=== PATIENT | female | born 1980 | race Two or more races ===

== ENCOUNTER 2018-12-02 22:38 | Inpatient (IN) | payer SELFPAY ==
[~2018-12-02] VITALS: Ht 162.6 cm; Wt 81.6 kg
[~2018-12-02 22:38] MED LIST: CEPH-264 PO; DOCU-109 PO; IBUP-1060 PO; METH250T3 PO; OXYC1TAB15 PO; PNV1TABL25 PO
[2018-12-02 23:11] LABS: BASO # 0.1 x10^3/uL (0.0-0.2); BASO % 1 % (0-3); EOS # 0.1 x10^3/uL (0.0-0.7); EOS % 1 % (0-3); HEMATOCRIT 38.8 % (36.0-47.0); HEMOGLOBIN 13.4 g/dL (12.0-15.5); LYMPH # 1.9 x10^3/uL (1.0-4.8); LYMPH % 17 % (24-48); MEAN CORPUSCULAR HEMOGLOBIN 30 pg (25-35); MEAN CORPUSCULAR HGB CONC 35 g/dL (31-37); MEAN CORPUSCULAR VOLUME 86 fL (79-100); MONO # 0.6 x10^3/uL (0.0-1.1); MONO % 6 % (0-9); NEUT # 8.1 x10^3uL (1.8-7.7); NEUT % 76 % (31-73); PLATELET COUNT 362 x10^3/uL (140-400); RED BLOOD COUNT 4.54 x10^6/uL (3.50-5.40); RED CELL DISTRIBUTION WIDTH 13.9 % (11.5-14.5); WHITE BLOOD COUNT 10.7 x10^3/uL (4.0-11.0)
[2018-12-02] MEDS ORDERED: LIDO:MAALOX 1:1 20 ML SINGLE DOSE. SWSW ONE (23:15)
[2018-12-02] MEDS ORDERED: IV NORMAL SALINE 1000ML BAG 1,000 ML IV ONE (23:15)
[2018-12-02] MEDS ORDERED: FAMOTIDINE 20 MG/2 ML VIAL IVP ONE (23:15)
[2018-12-02] MEDS ORDERED: ASPIRIN 325 MG TABLET PO ONE (23:15)
[2018-12-02] MEDS ORDERED: ALPRAZolam 0.5 MG TABLET PO ONE (23:15)
[2018-12-02 23:23] LABS: CALCIUM 8.7 mg/dL (8.5-10.1); CREATININE 0.8 mg/dL (0.6-1.0); GFR 81.2; POTASSIUM 3.7 mmol/L (3.5-5.1)
[2018-12-02 23:30] LABS: ALBUMIN 3.6 g/dL (3.4-5.0); ALBUMIN/GLOBULIN RATIO 0.7 (1.0-1.7); MAGNESIUM 2.1 mg/dL (1.8-2.4); TOTAL BILIRUBIN 0.3 mg/dL (0.2-1.0); TOTAL PROTEIN 8.5 g/dL (6.4-8.2)
[2018-12-02 23:41] LABS: CREATINE KINASE 108 U/L (26-192)
[2018-12-02 23:45] LABS: PROTHROMBIN TIME PATIENT 13.2 SEC (11.7-14.0)
[2018-12-02 23:49] LABS: D-DIMER 1.06 ug/mlFEU (0.00-0.50)
[2018-12-03] VITALS (13 sets, daily range): BP systolic 118–160; BP diastolic 68–95
[2018-12-03] MEDS ORDERED: CONTRAST GIVEN. MC PRN
[2018-12-03] MEDS ORDERED: IOHEXOL 350 MG/ML 100 ML VIAL. IV ONE
[2018-12-03] MEDS ORDERED: LABETALOL 20 MG/4 ML DISP.SYRIN. IVP ONE (00:15)
[2018-12-03] MEDS ORDERED: cloNIDine HCL 0.1 MG TABLET PO ONE (00:15)
--- NOTE | 2018-12-03 00:34 | PHYS DOC ---
Past Medical History Past Medical History: Anxiety, GERD, Hypertension Additional Past Medical Histor: "prediabetic" (SANNA WARD APRN) Past Surgical History: (SANNA WARD APRN) Alcohol Use: None Drug Use: None (SANNA WARD APRN) Adult General Chief Complaint Chief Complaint: CHEST PAIN-NON CARDIAC NATURE HPI HPI Patient is a 38 year old female with a history of acid reflex, hypertension, prediabetes, anxiety, who presents to the ED today complaining of 10 out of 10 epigastric pain that began at 1600 today. Patient describes the pain as sharp and constant. Patient states she's had similar pain before but does not remember what alleviated the pain. She is crying right now. She states she usually has anxiety but is not on any medication. Patient denies anything specifically exacerbating or alleviating her pain right now. She appears very anxious. Denies being abused Patient is Syriac-speaking and the doctors interpreting (SANNA WARD APRN) Review of Systems Review of Systems Constitutional: Denies fever or chills [] Eyes: Denies change in visual acuity, redness, or eye pain [] HENT: Denies nasal congestion or sore throat [] Respiratory: Denies cough or shortness of breath [] Cardiovascular: Reports epigastric pain GI: Denies abdominal pain, nausea, vomiting, bloody stools or diarrhea [] : Denies dysuria or hematuria [] Musculoskeletal: Denies back pain or joint pain [] Integument: Denies rash or skin lesions [] Neurologic: Denies headache, focal weakness or sensory changes [] Psych: Reports anxiety All other systems were reviewed and found to be within normal limits, except as documented in this note. (SANNA WARD APRN) Current Medications Current Medications Current Medications Medications (Trade) Dose Ordered Sig/Margarito Start Time Stop Time Status Last Admin Dose Admin Alprazolam (Xanax) 0.5 mg 1X ONCE 12/02/18 23:15 12/02/18 23:17 DC 12/02/18 23:43 0.5 MG Aspirin (Selam Aspirin) 325 mg 1X ONCE 12/02/18 23:15 12/02/18 23:17 DC 12/02/18 23:44 325 MG Clonidine HCl (Catapres) 0.1 mg 1X ONCE 12/03/18 00:15 12/03/18 00:16 DC 12/03/18 00:38 0.1 MG Famotidine (Pepcid Vial) 20 mg 1X ONCE 12/02/18 23:15 12/02/18 23:17 DC 12/02/18 23:44 20 MG Info (CONTRAST GIVEN -- Rx MONITORING) 1 each PRN DAILY PRN 12/03/18 00:00 12/05/18 00:00 Iohexol (Omnipaque 350 Mg/ml) 100 ml 1X ONCE 12/03/18 00:00 12/03/18 00:01 DC 12/03/18 00:30 100 ML Labetalol HCl (Normodyne Iv Push) 10 mg 1X ONCE 12/03/18 00:15 12/03/18 00:16 DC Morphine Sulfate (Morphine Sulfate) 4 mg PRN Q2HR PRN 12/03/18 01:30 12/04/18 01:29 Multi-Ingredient Mouthwash/Gargle (Gi Cocktail) 20 ml 1X ONCE 12/02/18 23:15 12/02/18 23:17 DC 12/02/18 23:43 20 ML Ondansetron HCl (Zofran) 4 mg PRN Q8HRS PRN 12/03/18 01:30 12/04/18 01:29 Piperacillin Sod/ Tazobactam Sod (Zosyn Per Pharmacy) 1 each PRN DAILY PRN 12/03/18 01:30 Piperacillin Sod/ Tazobactam Sod 3.375 gm/Sodium Chloride 50 ml @ 100 mls/hr Q6HRS 12/03/18 01:30 Sodium Chloride 1,000 ml @ 100 mls/hr Q10H 12/03/18 01:30 12/04/18 01:29 (CAMACHO OSUNA MD) Allergies Allergies Allergies Coded Allergies Type Severity Reaction Last Updated Verified No Known Drug Allergies 12/02/18 No (CAMACHO OSUNA MD) Physical Exam Physical Exam Constitutional: Well developed, well nourished, no acute distress, non-toxic appearance. [] HENT: Normocephalic, atraumatic, bilateral external ears normal, oropharynx moist, no oral exudates, nose normal. [] Eyes: PERRLA, EOMI, conjunctiva normal, no discharge. [] Neck: Normal range of motion, no tenderness, supple, no stridor. [] Cardiovascular:Heart rate regular rhythm, no murmur [] Lungs & Thorax: Bilateral breath sounds clear to auscultation [] Abdomen: Bowel sounds normal, soft, tenderness on palpation of the epigastric region as well as bilateral upper abdomen with no obvious Wong sign, no masses, no pulsatile masses. [] Skin: Warm, dry, no erythema, no rash. [] Back: No tenderness, no CVA tenderness. [] Extremities: No tenderness, no cyanosis, no clubbing, ROM intact, no edema. [] Neurologic: Alert and oriented X 3, normal motor function, normal sensory function, no focal deficits noted. [] Psychologic: Patient appears anxious, she is crying (SANNA WARD APRN) Current Patient Data Vital Signs Vital Signs Date Time Temp Pulse Resp B/P (MAP) Pulse Ox O2 Delivery O2 Flow Rate FiO2 12/03/18 00:38 76 170/96 12/02/18 23:30 18 98 Room Air 12/02/18 23:11 98.6 98.6 (CAMACHO OSUNA MD) Lab Values Laboratory Tests Test 12/02/18 23:05 12/03/18 00:40 White Blood Count 10.7 x10^3/uL (4.0-11.0) Red Blood Count 4.54 x10^6/uL (3.50-5.40) Hemoglobin 13.4 g/dL (12.0-15.5) Hematocrit 38.8 % (36.0-47.0) Mean Corpuscular Volume 86 fL (79-100) Mean Corpuscular Hemoglobin 30 pg (25-35) Mean Corpuscular Hemoglobin Concent 35 g/dL (31-37) Red Cell Distribution Width 13.9 % (11.5-14.5) Platelet Count 362 x10^3/uL (140-400) Neutrophils (%) (Auto) 76 % (31-73) H Lymphocytes (%) (Auto) 17 % (24-48) L Monocytes (%) (Auto) 6 % (0-9) Eosinophils (%) (Auto) 1 % (0-3) Basophils (%) (Auto) 1 % (0-3) Neutrophils # (Auto) 8.1 x10^3uL (1.8-7.7) H Lymphocytes # (Auto) 1.9 x10^3/uL (1.0-4.8) Monocytes # (Auto) 0.6 x10^3/uL (0.0-1.1) Eosinophils # (Auto) 0.1 x10^3/uL (0.0-0.7) Basophils # (Auto) 0.1 x10^3/uL (0.0-0.2) Prothrombin Time 13.2 SEC (11.7-14.0) Prothrombin Time INR 1.0 (0.8-1.1) D-Dimer (Halima) 1.06 ug/mlFEU (0.00-0.50) H Sodium Level 133 mmol/L (136-145) L Potassium Level 3.7 mmol/L (3.5-5.1) Chloride Level 97 mmol/L (98-107) L Carbon Dioxide Level 26 mmol/L (21-32) Anion Gap 10 (6-14) Blood Urea Nitrogen 10 mg/dL (7-20) Creatinine 0.8 mg/dL (0.6-1.0) Estimated GFR (Cockcroft-Gault) 81.2 BUN/Creatinine Ratio 13 (6-20) Glucose Level 144 mg/dL (70-99) H Calcium Level 8.7 mg/dL (8.5-10.1) Magnesium Level 2.1 mg/dL (1.8-2.4) Total Bilirubin 0.3 mg/dL (0.2-1.0) Aspartate Amino Transferase (AST) 17 U/L (15-37) Alanine Aminotransferase (ALT) 29 U/L (14-59) Alkaline Phosphatase 98 U/L (46-116) Creatine Kinase 108 U/L (26-192) Creatine Kinase MB (Mass) < 0.5 ng/mL (0.0-3.6) Creatine Kinase MB Relative Index % (0-4) Troponin I Quantitative < 0.017 ng/mL (0.000-0.055) QJ-Mne-S-Type Natriuretic Peptide 34 pg/mL (0-124) Total Protein 8.5 g/dL (6.4-8.2) H Albumin 3.6 g/dL (3.4-5.0) Albumin/Globulin Ratio 0.7 (1.0-1.7) L Lipase 123 U/L (73-393) Thyroid Stimulating Hormone (TSH) 0.847 uIU/mL (0.358-3.74) Urine Collection Type Unknown Urine Color [place] Urine Clarity Cloudy Urine pH 7.5 Urine Specific [place] >=1.030 Urine Protein Negative mg/dL (NEG-TRACE) Urine Glucose (UA) Negative mg/dL (NEG) Urine Ketones (Stick) Negative mg/dL (NEG) Urine Blood Large (NEG) Urine Nitrite Negative (NEG) Urine Bilirubin Negative (NEG) Urine Urobilinogen Dipstick 0.2 mg/dL (0.2 mg/dL) Urine Leukocyte Esterase Moderate (NEG) Urine RBC Tntc /HPF (0-2) Urine WBC 11-20 /HPF (0-4) Urine Squamous Epithelial Cells Few /LPF Urine Bacteria Few /HPF (0-FEW) Urine Mucus Slight /LPF Urine Opiates Screen Neg (NEG) Urine Methadone Screen Neg (NEG) Urine Barbiturates Neg (NEG) Urine Phencyclidine Screen Neg (NEG) Urine Amphetamine/Methamphetamine Neg (NEG) Urine Benzodiazepines Screen Neg (NEG) Urine Cocaine Screen Neg (NEG) Urine Cannabinoids Screen Neg (NEG) Urine Ethyl Alcohol Neg (NEG) Laboratory Tests 12/02/18 23:05 Laboratory Tests 12/02/18 23:05 (CAMACHO OSUNA MD) EKG EKG 22:50 interpreted by sinus rate them heart rate 87 no STEMI[] (SANNA WARD APRN) Radiology/Procedures Radiology/Procedures [] (SANNA WARD APRN) Course & Med Decision Making Course & Med Decision Making Pertinent Labs and Imaging studies reviewed. (See chart for details) This is a 38-year-old female patient presenting to the ED today from home complaining of epigastric pain. Patient arrives in the ED appearing anxious, crying. Vitals on arrival to the ED temperature 98.6 heart rate 76 O2 sats 99% on room air blood pressure 179/123 with a heart rate of 76. Has history of hypertension and prediabetes. CBC with a normal WBC left shift noted, CMP with glucose of 144 anion gap is normal patient states she has history of prediabetes Heart score [address] Osuna (SANNA WARD APRN) Course & Med Decision Making S/O FROM SANNA U/S SHOWS ENLARGED GB, GB STONE IN NECK NONMOBILE, GB SLUDGE, CBD 5.2 MM. WALL THICK, PCCF NOTED D/W SUGEY ADMIT TO [facility] (CAMACHO OSUNA MD) Dragon Disclaimer Dragon Disclaimer This electronic medical record was generated, in whole or in part, using a voice recognition dictation system. (SANNA WARD APRN) Departure Departure Impression: Primary Impression: Epigastric pain Additional Impressions: HTN (hypertension) Cholecystitis Disposition: ADMITTED INPATIENT Admitting Physician: Jamia Briceno (CAMACHO OSUNA MD) Condition: STABLE Referrals: UNKNOWN PCP NAME (PCP) Problem Qualifiers Additional Impressions: HTN (hypertension) Hypertension type: unspecified Qualified Codes: I10 - Essential (primary) hypertension SANNA WARD APRN Dec 03, 2018 00:34 CAMACHO OSUNA MD Dec 03, 2018 01:38
--- NOTE | 2018-12-03 00:54 | RAD ---
INDICATION: chest pain elevated d dimer, OMNI 350 90mL COMPARISON: None. TECHNIQUE: Axial CT images obtained through the chest. Intravenous contrast utilized. Angiogram 3D images processed per protocol. One or more of the following individualized dose reduction techniques were utilized for this examination: 1. Automated exposure control; 2. Adjustment of the mA and/or kV according to patient size; 3. Use of iterative reconstruction technique. FINDINGS: Minimal groundglass opacities right lower lung. No evidence of pneumothorax. Liver is low density. Probable gallstone. The gallbladder wall appears prominent in thickness through portion. Degenerative changes the right shoulder with some subchondral cyst formation as well as air at adjacent soft tissue. Degenerative changes of spine. No thoracic aortic aneurysm. Ascending thoracic aorta is largely obscured by motion. No embolus in main, right main or left main pulmonary artery. Large amount of motion obscures peripheral vessels. IMPRESSION: No embolus in the main pulmonary arteries but patient motion obscures the more peripheral vessels. Tiny groundglass opacity right lung. Could be from hypoventilatory changes or small airway inflammation. Liver is low density. Nonspecific but can be seen with fatty infiltration. There is either a small amount of pericholecystic edema or wall thickening of the gallbladder. It may be helpful to obtain a follow-up ultrasound to better evaluate Electronically signed by: Massimo Lao MD (12/03/2018 12:51 AM) [id number]
[2018-12-03 00:55] LABS: BILIRUBIN,URINE NEGATIVE (NEG); CLARITY,URINE CLOUDY; NITRITE,URINE NEGATIVE (NEG); PH,URINE 7.5; PROTEIN,URINE NEGATIVE (NEG-TRACE); UROBILINOGEN,URINE 0.2 mg/dL (0.2 mg/dL)
[2018-12-03 01:01] LABS: BARBITURATES NEG (NEG); BENZODIAZEPINES NEG (NEG); CANNABINOIDS NEG (NEG); COCAINE NEG (NEG); METHADONE NEG (NEG); OPIATES NEG (NEG); PHENCYCLIDINE NEG (NEG)
[2018-12-03 01:09] LABS: COLOR,URINE PINK
[2018-12-03 01:10] LABS: BACTERIA,URINE FEW /HPF (0-FEW); RBC,URINE TNTC /HPF (0-2); SQUAMOUS EPITHELIAL CELL,UR FEW /LPF
[2018-12-03 01:12] LABS: AMPHETAMINE/METHAMPHETAMINE NEG (NEG)
[2018-12-03] MEDS ORDERED: ONDANSETRON PF 4 MG/2 ML VIAL. IV PRN ×3 (01:30→09:00)
[2018-12-03] MEDS ORDERED: PIP/TAZO PER PHARMACY MC PRN (01:30)
--- NOTE | 2018-12-03 01:47 | RAD ---
INDICATION : RUQ PAIN CHEST PAIN COMPARISON: None TECHNIQUE: Multiple ultrasound images obtained through the abdomen in grayscale and color. FINDINGS: Liver: Echogenic Gallbladder: Gallstones are identified with pericholecystic edema. Distended at time of exam. Gallstone in the gallbladder neck. Wall measures up to 5 mm. IVC: Partially distended at level of liver. Common Bile Duct: 5 mm Pancreas: Largely obscured by bowel gas Right Kidney: Mildly prominent right renal pelvis. IMPRESSION: 1. Gallstones are identified with some distention of the gallbladder as well as a stone within the gallbladder neck region. There is also some prominence of the wall with pericholecystic edema. Would correlate with symptoms in the region to ensure that there is not a pathologic cause such as cholecystitis. The gallbladder wall thickening can also be reactive to adjacent hepatic disease or systemic process such as hypoproteinemia. Liver is echogenic. Nonspecific but can be seen with fatty infiltration Mild right-sided hydronephrosis Electronically signed by: Massimo Lao MD (12/03/2018 1:44 AM) [facility]
[2018-12-03] MEDS: PIPERACILLIN/TAZOBACTAM 3.375 GM in IV NORMAL SALINE 50ML 50 ML IV SCH ×5 (02:38→23:29)
[2018-12-03] MEDS: MORPHINE SULFATE 4 MG/ML VIAL. IV PRN ×3 (02:54→09:58)
[2018-12-03] MEDS: IV NORMAL SALINE 1000ML BAG 1,000 ML IV SCH ×3 (03:03→21:02)
--- NOTE | 2018-12-03 03:42 | NUR ---
The patient, DEEP DRUMMOND, 38 y/o, F admitted by MAGAN WHEELER MD, was given written information regarding hospital policies, unit procedures and contact persons. Pt. arrived to unit by wheelchair and zosyn running through IV. VSS. Pt. rates pain /. Pain medication given. Admission assessment and questions done at this time. Pt. refused to put belongings with security. She has about $30 worth of goins in [facility] [employer]), a debit card and home meds in purse. Call light within reach, bed low. Will continue to monitor.
[2018-12-03] MEDS ORDERED: OMEP20CA10 PO (04:02)
[2018-12-03] MEDS ORDERED: LISI10TA2 PO (04:02)
[2018-12-03] MEDS ORDERED: METF850T8 PO (04:02)
--- NOTE | 2018-12-03 08:11 | RAD ---
Examination: PORTABLE CHEST 1V History: CHEST PAIN SINCE 4 PM AROUND STERNM THAT HAS GOTTEN WORSE. HX OF HYPERTENTION Comparison/Correlation: None Findings: Portable upright frontal view of the chest was obtained. Heart size and pulmonary vasculature are normal. No infiltrate or pleural effusion. Bone island involves the left humeral head. No acute bony process. No pneumothorax. Impression: No active disease. Electronically signed by: Floyd Cisneros MD (12/03/2018 8:09 AM) [facility]
--- NOTE | 2018-12-03 08:18 | EKG ---
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
[2018-12-03] MEDS ORDERED: IV RINGERS,LACTATED 1000ML 1,000 ML IV SCH (08:49)
[2018-12-03] MEDS ORDERED: MORPHINE SULFATE 2 MG/ML VIAL. IV PRN (09:00)
[2018-12-03] MEDS: PANTOPRAZOLE 40 MG TABLET.DR. PO SCH (09:00)
[2018-12-03] MEDS ORDERED: HYDROmorphone 2 MG/ML VIAL IV PRN (09:00)
[2018-12-03] MEDS: LISINOPRIL 10 MG TABLET PO SCH (09:00)
[2018-12-03] MEDS ORDERED: LIDOCAINE 1% PF 2 ML VIAL. ID PRN (09:00)
[2018-12-03] MEDS ORDERED: PROCHLORPERAZINE 10 MG/2 ML VIAL. IV PRN (09:00)
[2018-12-03] MEDS ORDERED: fentaNYL PF VIAL 100 MCG/2 ML VIAL IV PRN ×2 (09:00)
[2018-12-03] MEDS ORDERED: IOHEXOL 300 MG/ML 100ML VIAL. ONE (09:17)
[2018-12-03] MEDS ORDERED: BUPIVAC MPF-EPI 0.5%-1:200000 30 ML VIAL. ONE (09:17)
[2018-12-03] MEDS ORDERED: SURGICEL HEMOSTAT 4X8 EACH. ONE (09:18)
--- NOTE | 2018-12-03 09:48 | PDOC2 ---
MARYCRUZ HERRERA COMPLIANCE NURSE 12/03/18 0948: CONSULT Date of Consult Date of Consult DATE: 12/03/18 TIME: 09:43 Reason for Consult Reason for Consult: cholecystitis Referring Physician Referring Physician: ER Identification/Chief Complaint Chief Complaint abdominal pain Source Source: Chart review, Patient History of Present Illness Reason for Visit: Reports acute onset of epigastric pain. She has had this pain before, however more severe now. Denies radiation to back. Pain does wrap to RUQ. No nausea or emesis. No aggravating or alleviating factors Past Medical History Cardiovascular: HTN GI: GERD Past Surgical History Past Surgical History: Family History Family History: Family History Unknown Social History No ALCOHOL: none Drugs: None Lives: Alone Current Problem List Problem List Problems Medical Problems: (1) Cholecystitis Status: Acute (2) Epigastric pain Status: Acute (3) HTN (hypertension) Status: Acute Current Medications Current Medications Current Medications Aspirin (Selam Aspirin) 325 mg 1X ONCE PO Last administered on 12/02/18at 23:44; Start 12/02/18 at 23:15; Stop 12/02/18 at 23:17; Status DC Alprazolam (Xanax) 0.5 mg 1X ONCE PO Last administered on 12/02/18at 23:43; Start 12/02/18 at 23:15; Stop 12/02/18 at 23:17; Status DC Multi-Ingredient Mouthwash/Gargle (Gi Cocktail) 20 ml 1X ONCE SWSW Last administered on 12/02/18at 23:43; Start 12/02/18 at 23:15; Stop 12/02/18 at 23:17; Status DC Famotidine (Pepcid Vial) 20 mg 1X ONCE IVP Last administered on 12/02/18at 23:44; Start 12/02/18 at 23:15; Stop 12/02/18 at 23:17; Status DC Sodium Chloride 1,000 ml @ 1,000 mls/hr 1X ONCE IV Last administered on 12/02/18at 23:44; Start 12/02/18 at 23:15; Stop 12/03/18 at 00:14; Status DC Iohexol (Omnipaque 350 Mg/ml) 100 ml 1X ONCE IV Last administered on 12/03/18at 00:30; Start 12/03/18 at 00:00; Stop 12/03/18 at 00:01; Status DC Info (CONTRAST GIVEN -- Rx MONITORING) 1 each PRN DAILY PRN MC SEE COMMENTS; Start 12/03/18 at 00:00; Stop 12/05/18 at 00:00 Labetalol HCl (Normodyne Iv Push) 10 mg 1X ONCE IVP ; Start 12/03/18 at 00:15; Stop 12/03/18 at 00:16; Status DC Clonidine HCl (Catapres) 0.1 mg 1X ONCE PO Last administered on 12/03/18at 00:38; Start 12/03/18 at 00:15; Stop 12/03/18 at 00:16; Status DC Ondansetron HCl (Zofran) 4 mg PRN Q8HRS PRN IV NAUSEA/VOMITING Last administered on 12/03/18at 05:45; Start 12/03/18 at 01:30; Stop 12/03/18 at 08:45; Status DC Morphine Sulfate (Morphine Sulfate) 4 mg PRN Q2HR PRN IV PAIN Last administered on 12/03/18at 05:45; Start 12/03/18 at 01:30; Stop 12/04/18 at 01:29 Sodium Chloride 1,000 ml @ 100 mls/hr Q10H IV Last administered on 12/03/18at 03:03; Start 12/03/18 at 01:30; Stop 12/04/18 at 01:29 Piperacillin Sod/ Tazobactam Sod (Zosyn Per Pharmacy) 1 each PRN DAILY PRN MC SEE COMMENTS; Start 12/03/18 at 01:30 Piperacillin Sod/ Tazobactam Sod 3.375 gm/Sodium Chloride 50 ml @ 100 mls/hr Q6HRS IV Last administered on 12/03/18at 05:45; Start 12/03/18 at 01:30 Ondansetron HCl (Zofran) 4 mg PRN Q6HRS PRN IV NAUSEA/VOMITING; Start 12/03/18 at 08:45 Lisinopril (Prinivil) 10 mg DAILY PO ; Start 12/03/18 at 09:00 Pantoprazole Sodium (Protonix) 40 mg DAILYAC PO ; Start 12/03/18 at 09:00 Ondansetron HCl (Zofran) 4 mg PRN Q6HRS PRN IV NAUSEA/VOMITING; Start 12/03/18 at 09:00; Stop 12/04/18 at 08:59 Fentanyl Citrate (Fentanyl 2ml Vial) 25 mcg PRN Q5MIN PRN IV MILD PAIN; Start 12/03/18 at 09:00; Stop 12/04/18 at 08:59 Fentanyl Citrate (Fentanyl 2ml Vial) 50 mcg PRN Q5MIN PRN IV MODERATE TO SEVERE PAIN; Start 12/03/18 at 09:00; Stop 12/04/18 at 08:59 Morphine Sulfate (Morphine Sulfate) 1 mg PRN Q10MIN PRN IV SEVERE PAIN; Start 12/03/18 at 09:00; Stop 12/04/18 at 08:59 Ringer's Solution 1,000 ml @ 30 mls/hr Q24H IV ; Start 12/03/18 at 08:49; Stop 12/03/18 at 20:48 Lidocaine HCl (Xylocaine-Mpf 1% 2ml Vial) 2 ml PRN 1X PRN ID PRIOR TO IV START; Start 12/03/18 at 09:00; Stop 12/04/18 at 08:59 Hydromorphone HCl (Dilaudid) 0.5 mg PRN Q10MIN PRN IV SEV PAIN, Second choice; Start 12/03/18 at 09:00; Stop 12/04/18 at 08:59 Prochlorperazine Edisylate (Compazine) 5 mg PACU PRN PRN IV NAUSEA, MRX1; Start 12/03/18 at 09:00; Stop 12/04/18 at 08:59 Active Scripts Active Reported Metformin Hcl 850 Mg Tablet 850 Mg PO 1X Omeprazole 20 Mg Capsule. 1 Cap PO DAILY Lisinopril 10 Mg Tablet 1 Tab PO DAILY Allergies Allergies: Coded Allergies: No Known Drug Allergies (Unverified , 12/02/18) ROS General: No: Chills, Other (fevers) PSYCHOLOGICAL ROS: No: Anxiety, Depression Eyes: No Blurry vision, No Double vision HEENT: No: Heacaches, Sore Throat Hematological and Lymphatic: No: Bleeding Problems, Blood Clots Respiratory: No: Cough, Shortness of breath Cardiovascular: No Chest Pain, No Palpitations Gastrointestinal: Yes Other (see hpi) Genitourinary: No Dysuria, No Retention Neurological: No Confusion, No Impaired Coord/balance Skin: No Pruritus, No Rash Physical Exam General: Alert, Oriented X3, Cooperative, No acute distress HEENT: PERRLA, Mucous membr. moist/pink Lungs: Clear to auscultation, Normal air movement Heart: Regular rate, Normal S1, Normal S2, No murmurs Abdomen: Soft, Other (ND, TTP to epigastric, RUQ) Extremities: No clubbing, No cyanosis Skin: No rashes, No breakdown Neuro: Normal gait, Normal speech Psych/Mental Status: Mental status NL, Mood NL MUSCULOSKELETAL: No joint tenderness, No deformity Vitals VITALS Vital Signs Date Time Temp Pulse Resp B/P (MAP) Pulse Ox O2 Delivery O2 Flow Rate FiO2 12/03/18 07:00 98.1 76 18 135/82 (99) 98 Room Air 98.1 Labs Labs Laboratory Tests Test 12/02/18 23:05 12/03/18 00:40 12/03/18 03:48 White Blood Count 10.7 x10^3/uL (4.0-11.0) Red Blood Count 4.54 x10^6/uL (3.50-5.40) Hemoglobin 13.4 g/dL (12.0-15.5) Hematocrit 38.8 % (36.0-47.0) Mean Corpuscular Volume 86 fL (79-100) Mean Corpuscular Hemoglobin 30 pg (25-35) Mean Corpuscular Hemoglobin Concent 35 g/dL (31-37) Red Cell Distribution Width 13.9 % (11.5-14.5) Platelet Count 362 x10^3/uL (140-400) Neutrophils (%) (Auto) 76 % (31-73) Lymphocytes (%) (Auto) 17 % (24-48) Monocytes (%) (Auto) 6 % (0-9) Eosinophils (%) (Auto) 1 % (0-3) Basophils (%) (Auto) 1 % (0-3) Neutrophils # (Auto) 8.1 x10^3uL (1.8-7.7) Lymphocytes # (Auto) 1.9 x10^3/uL (1.0-4.8) Monocytes # (Auto) 0.6 x10^3/uL (0.0-1.1) Eosinophils # (Auto) 0.1 x10^3/uL (0.0-0.7) Basophils # (Auto) 0.1 x10^3/uL (0.0-0.2) Prothrombin Time 13.2 SEC (11.7-14.0) Prothromb Time International Ratio 1.0 (0.8-1.1) D-Dimer (Halima) 1.06 ug/mlFEU (0.00-0.50) Sodium Level 133 mmol/L (136-145) Potassium Level 3.7 mmol/L (3.5-5.1) Chloride Level 97 mmol/L (98-107) Carbon Dioxide Level 26 mmol/L (21-32) Anion Gap 10 (6-14) Blood Urea Nitrogen 10 mg/dL (7-20) Creatinine 0.8 mg/dL (0.6-1.0) Estimated GFR (Cockcroft-Gault) 81.2 BUN/Creatinine Ratio 13 (6-20) Glucose Level 144 mg/dL (70-99) Calcium Level 8.7 mg/dL (8.5-10.1) Magnesium Level 2.1 mg/dL (1.8-2.4) Total Bilirubin 0.3 mg/dL (0.2-1.0) Aspartate Amino Transf (AST/SGOT) 17 U/L (15-37) Alanine Aminotransferase (ALT/SGPT) 29 U/L (14-59) Alkaline Phosphatase 98 U/L (46-116) Creatine Kinase 108 U/L (26-192) Creatine Kinase MB (Mass) < 0.5 ng/mL (0.0-3.6) Creatine Kinase MB Relative Index % (0-4) Troponin I Quantitative < 0.017 ng/mL (0.000-0.055) AE-Tcf-V-Type Natriuretic Peptide 34 pg/mL (0-124) Total Protein 8.5 g/dL (6.4-8.2) Albumin 3.6 g/dL (3.4-5.0) Albumin/Globulin Ratio 0.7 (1.0-1.7) Lipase 123 U/L (73-393) Thyroid Stimulating Hormone (TSH) 0.847 uIU/mL (0.358-3.74) Urine Collection Type Unknown Urine Color [place] Urine Clarity Cloudy Urine pH 7.5 Urine Specific [place] >=1.030 Urine Protein Negative mg/dL (NEG-TRACE) Urine Glucose (UA) Negative mg/dL (NEG) Urine Ketones (Stick) Negative mg/dL (NEG) Urine Blood Large (NEG) Urine Nitrite Negative (NEG) Urine Bilirubin Negative (NEG) Urine Urobilinogen Dipstick 0.2 mg/dL (0.2 mg/dL) Urine Leukocyte Esterase Moderate (NEG) Urine RBC Tntc /HPF (0-2) Urine WBC 11-20 /HPF (0-4) Urine Squamous Epithelial Cells Few /LPF Urine Bacteria Few /HPF (0-FEW) Urine Mucus Slight /LPF Urine Opiates Screen Neg (NEG) Urine Methadone Screen Neg (NEG) Urine Barbiturates Neg (NEG) Urine Phencyclidine Screen Neg (NEG) Urine Amphetamine/Methamphetamine Neg (NEG) Urine Benzodiazepines Screen Neg (NEG) Urine Cocaine Screen Neg (NEG) Urine Cannabinoids Screen Neg (NEG) Urine Ethyl Alcohol Neg (NEG) Glucose (Fingerstick) 124 mg/dL (70-99) Laboratory Tests Test 12/02/18 23:05 12/03/18 00:40 12/03/18 03:48 White Blood Count 10.7 x10^3/uL (4.0-11.0) Red Blood Count 4.54 x10^6/uL (3.50-5.40) Hemoglobin 13.4 g/dL (12.0-15.5) Hematocrit 38.8 % (36.0-47.0) Mean Corpuscular Volume 86 fL (79-100) Mean Corpuscular Hemoglobin 30 pg (25-35) Mean Corpuscular Hemoglobin Concent 35 g/dL (31-37) Red Cell Distribution Width 13.9 % (11.5-14.5) Platelet Count 362 x10^3/uL (140-400) Neutrophils (%) (Auto) 76 % (31-73) Lymphocytes (%) (Auto) 17 % (24-48) Monocytes (%) (Auto) 6 % (0-9) Eosinophils (%) (Auto) 1 % (0-3) Basophils (%) (Auto) 1 % (0-3) Neutrophils # (Auto) 8.1 x10^3uL (1.8-7.7) Lymphocytes # (Auto) 1.9 x10^3/uL (1.0-4.8) Monocytes # (Auto) 0.6 x10^3/uL (0.0-1.1) Eosinophils # (Auto) 0.1 x10^3/uL (0.0-0.7) Basophils # (Auto) 0.1 x10^3/uL (0.0-0.2) Prothrombin Time 13.2 SEC (11.7-14.0) Prothromb Time International Ratio 1.0 (0.8-1.1) D-Dimer (Halima) 1.06 ug/mlFEU (0.00-0.50) Sodium Level 133 mmol/L (136-145) Potassium Level 3.7 mmol/L (3.5-5.1) Chloride Level 97 mmol/L (98-107) Carbon Dioxide Level 26 mmol/L (21-32) Anion Gap 10 (6-14) Blood Urea Nitrogen 10 mg/dL (7-20) Creatinine 0.8 mg/dL (0.6-1.0) Estimated GFR (Cockcroft-Gault) 81.2 BUN/Creatinine Ratio 13 (6-20) Glucose Level 144 mg/dL (70-99) Calcium Level 8.7 mg/dL (8.5-10.1) Magnesium Level 2.1 mg/dL (1.8-2.4) Total Bilirubin 0.3 mg/dL (0.2-1.0) Aspartate Amino Transf (AST/SGOT) 17 U/L (15-37) Alanine Aminotransferase (ALT/SGPT) 29 U/L (14-59) Alkaline Phosphatase 98 U/L (46-116) Creatine Kinase 108 U/L (26-192) Creatine Kinase MB (Mass) < 0.5 ng/mL (0.0-3.6) Creatine Kinase MB Relative Index % (0-4) Troponin I Quantitative < 0.017 ng/mL (0.000-0.055) VZ-Gbq-L-Type Natriuretic Peptide 34 pg/mL (0-124) Total Protein 8.5 g/dL (6.4-8.2) Albumin 3.6 g/dL (3.4-5.0) Albumin/Globulin Ratio 0.7 (1.0-1.7) Lipase 123 U/L (73-393) Thyroid Stimulating Hormone (TSH) 0.847 uIU/mL (0.358-3.74) Urine Collection Type Unknown Urine Color [place] Urine Clarity Cloudy Urine pH 7.5 Urine Specific [place] >=1.030 Urine Protein Negative mg/dL (NEG-TRACE) Urine Glucose (UA) Negative mg/dL (NEG) Urine Ketones (Stick) Negative mg/dL (NEG) Urine Blood Large (NEG) Urine Nitrite Negative (NEG) Urine Bilirubin Negative (NEG) Urine Urobilinogen Dipstick 0.2 mg/dL (0.2 mg/dL) Urine Leukocyte Esterase Moderate (NEG) Urine RBC Tntc /HPF (0-2) Urine WBC 11-20 /HPF (0-4) Urine Squamous Epithelial Cells Few /LPF Urine Bacteria Few /HPF (0-FEW) Urine Mucus Slight /LPF Urine Opiates Screen Neg (NEG) Urine Methadone Screen Neg (NEG) Urine Barbiturates Neg (NEG) Urine Phencyclidine Screen Neg (NEG) Urine Amphetamine/Methamphetamine Neg (NEG) Urine Benzodiazepines Screen Neg (NEG) Urine Cocaine Screen Neg (NEG) Urine Cannabinoids Screen Neg (NEG) Urine Ethyl Alcohol Neg (NEG) Glucose (Fingerstick) 124 mg/dL (70-99) Assessment/Plan Assessment/Plan cholecystitis plan lap ana today SARA LYNN MD 12/03/18 1334: CONSULT Assessment/Plan Assessment/Plan Pt seen and examined by myself; 38 year old female, reported to ER with abdominal pain, located in RUQ, rad to side and back; evaluation in ER consistent with cholecystitis; PMH/PSH/ROS/SH as above; exam: alert, oriented, NAD, no icterus, no neck masses, lungs clear, heart RR and R, abdomen obese, tender in RUQ with palpation, no guarding or masses, ext neg for edema; Labs and Xrays reviewed; A/P) Calculous cholecystitis, recommend lap ana. Pt understands the procedure and would like to proceed. MARYCRUZ HERRERA APRN Dec 03, 2018 09:48 SARA LYNN MD Dec 03, 2018 13:34
--- NOTE | 2018-12-03 10:04 | NUR ---
SW following for discharge planning. Discussed with RN, pt is from home and is having surgery today. SW to give self pay resources to pt. SW will continue to follow.
[2018-12-03 10:37] LABS: U PREG PATIENT NEGATIVE (NEG)
[2018-12-03] MEDS ORDERED: ROCURONIUM 50 MG/5 ML VIAL. ONE (11:49)
[2018-12-03] MEDS ORDERED: NEOSTIGMINE METHYLSULFATE 5 MG/5 ML SYRINGE. ONE (11:49)
[2018-12-03] MEDS ORDERED: fentaNYL PF VIAL 100 MCG/2 ML VIAL ONE ×2 (11:49→14:46)
[2018-12-03] MEDS ORDERED: GLYCOPYRROLATE 1 MG/5 ML VIAL. ONE (11:50)
[2018-12-03] MEDS ORDERED: SEVOFLURANE 61 TO 120 MINUTES. IH ONE (11:51)
[2018-12-03] MEDS ORDERED: DEXAMETHASONE SOD PHOS 20 MG/5 ML VIAL. ONE (11:51)
[2018-12-03] MEDS ORDERED: ONDANSETRON PF 4 MG/2 ML VIAL. ONE (11:51)
[2018-12-03] MEDS ORDERED: PROPOFOL 20 ML IV ONE (11:51)
[2018-12-03] MEDS ORDERED: LIDOCAINE 2% PF 5 ML VIAL. ONE (11:51)
[2018-12-03] MEDS ORDERED: SEVOFLURANE > 120 MINUTES. IH ONE (13:53)
[2018-12-03] MEDS ORDERED: PHENYLEPHRINE in 0.9% NACL PF 1 MG/10 ML SYRINGE. IV ONE (13:53)
--- NOTE | 2018-12-03 14:23 | RAD ---
C-arm fluoroscopy with fluoroscopic spot views Clinical indications: Intraoperative cholangiogram. Total fluoroscopic time: 0.27 minutes. Total fluoroscopic spot images: 3. IMPRESSION: Fluoroscopic spot images demonstrate opacification of a nondilated extra hepatic biliary tree with free flow of contrast material from the common bile duct into the duodenum. No common bile duct stricture or stone is evident. Electronically signed by: Jelani Newberry MD (12/03/2018 2:20 PM) [id number]
[2018-12-03] MEDS ORDERED: ePHEDrine PF IN SALINE 50 MG/10 ML SYRINGE. IV ONE (14:40)
[2018-12-03] MEDS ORDERED: PROCHLORPERAZINE 10 MG/2 ML VIAL. ONE (14:46)
--- NOTE | 2018-12-03 14:48 | PDOC4 ---
Operative Note Operative Note Operative Note: Preoperative Diagnosis: Acute cholecystitis Postoperative Diagnosis: Same Procedure: Laparoscopic cholecystectomy with intraoperative cholangiogram Surgeons: Connor Anesthesia: GenMarshal Estimated Blood Loss: 10 mL Specimen: Gallbladder to pathology Drains: None Complications: None Indications: The patient is a 38 showed female who reported to the hospital with acute onset of upper abdominal pain. Her evaluation is consistent with acute cholecystitis. Surgical treatment was offered by means of a laparoscopic cholecystectomy. The risks of surgery were discussed which include bleeding, infection, bile duct injury, bile leak, pain, the potential for additional surge fariba or procedures. The patient understands and would like to proceed. Description: The patient was taken to the operating room and laid supine on the operating table. General anesthesia was performed. The abdomen was prepped with ChloraPrep and draped in a standard surgical fashion. A small infraumbilical incision was made with a scalpel. The Veress needle was then inserted and a pneumoperitoneum was then created. A 5 mm trocar was then inserted and the laparoscope was introduced. In the upper midabdomen an 11 mm trocar was inserted and in the right upper quadrant two 5 mm trochars were inserted. The gallbladder was distended with edema of the wall consistent with acute cholecystitis. Nearly 80 mL of fluid was aspirated providing gallbladder decompression. The gallbladder was retracted cephalad. The cystic duct was dissected free from surrounding tissues. One clip was placed on the duct near the gallbladder junction. An opening was made in the duct and a cholangiocatheter placed within and secured with a clip. Using contrast dye and fluoroscopy an intraoperative cholangiogram was performed that appeared unremarkable. The clip and catheter were then withdrawn. Three clips were placed on the cystic duct and it was divided. The cystic artery was then identified, dissected free, doubly clipped and divided as well. The gallbladder was then mobilized away from the liver with cautery. The umbilical 5 millimeter trocar was exchanged for an 11 millimeter trocar. The gallbladder was then placed in an endoscopic bag and extracted at the umbilical trocar site. The fascia there was closed with an 0 Vicryl suture. All blood and irrigation fluid was suctioned and hemostasis was good. The remaining ports were removed and the pneumoperitoneum was relieved. The skin incisions were injected with half percent Marcaine with epinephrine, and all were closed using 4-0 Monocryl suture. Steri-Strips and dressings were then applied. The patient tolerated the procedure well and was sent to the recovery room in stable condition. At the end of the case all counts were correct. SARA LYNN MD Dec 03, 2018 14:48
[2018-12-03] MEDS ORDERED: oxyCODONE/APAP 5/325 1 TAB TABLET PO PRN (15:00)
[2018-12-03] MEDS: oxyCODONE/APAP 5/325 1 TAB TABLET PO PRN ×2 (18:12→23:30)
--- NOTE | 2018-12-03 19:36 | NUR ---
Client left to surgery at approximately 1220, Zosyn running.
--- NOTE | 2018-12-03 19:37 | NUR ---
At approximately 1545 client came back to the unit. VSS, states 0/10 pain level, slight nausea. Call light within reach and bed at lowest position&locked. Will continue to monitor.
[2018-12-04 03:00] VITALS: BP 123/70
[2018-12-04] MEDS: PANTOPRAZOLE 40 MG TABLET.DR. PO SCH (05:56)
[2018-12-04] MEDS: PIPERACILLIN/TAZOBACTAM 3.375 GM in IV NORMAL SALINE 50ML 50 ML IV SCH ×2 (05:56→11:46)
[2018-12-04] MEDS: oxyCODONE/APAP 5/325 1 TAB TABLET PO PRN ×2 (05:57→11:45)
[2018-12-04 07:00] VITALS: BP 122/70
[2018-12-04] MEDS: LISINOPRIL 10 MG TABLET PO SCH (07:51)
--- NOTE | 2018-12-04 08:43 | PDOC ---
SURGICAL PROGRESS NOTE Subjective slight nausea, no emesis pain managed urinating Vital Signs Vital Signs Date Time Temp Pulse Resp B/P (MAP) Pulse Ox O2 Delivery O2 Flow Rate FiO2 12/04/18 07:51 55 122/70 12/04/18 07:00 98.1 18 97 Room Air 98.1 12/03/18 15:25 10 I&O Intake and Output 12/04/18 06:59 Intake Total 1800 ml Output Total 460 ml Balance 1340 ml Intake Oral 50 ml IV Total 1750 ml Output Urine Total 450 ml Estimated Blood Loss 10 ml # Voids 5 General: Alert, Oriented X3, Cooperative, No acute distress Abdomen: Soft, Other (lap dressings dry) Labs Laboratory Tests Test 12/02/18 23:05 12/03/18 00:40 12/03/18 03:48 White Blood Count 10.7 x10^3/uL (4.0-11.0) Red Blood Count 4.54 x10^6/uL (3.50-5.40) Hemoglobin 13.4 g/dL (12.0-15.5) Hematocrit 38.8 % (36.0-47.0) Mean Corpuscular Volume 86 fL (79-100) Mean Corpuscular Hemoglobin 30 pg (25-35) Mean Corpuscular Hemoglobin Concent 35 g/dL (31-37) Red Cell Distribution Width 13.9 % (11.5-14.5) Platelet Count 362 x10^3/uL (140-400) Neutrophils (%) (Auto) 76 % (31-73) Lymphocytes (%) (Auto) 17 % (24-48) Monocytes (%) (Auto) 6 % (0-9) Eosinophils (%) (Auto) 1 % (0-3) Basophils (%) (Auto) 1 % (0-3) Neutrophils # (Auto) 8.1 x10^3uL (1.8-7.7) Lymphocytes # (Auto) 1.9 x10^3/uL (1.0-4.8) Monocytes # (Auto) 0.6 x10^3/uL (0.0-1.1) Eosinophils # (Auto) 0.1 x10^3/uL (0.0-0.7) Basophils # (Auto) 0.1 x10^3/uL (0.0-0.2) Prothrombin Time 13.2 SEC (11.7-14.0) Prothromb Time International Ratio 1.0 (0.8-1.1) D-Dimer (Halima) 1.06 ug/mlFEU (0.00-0.50) Sodium Level 133 mmol/L (136-145) Potassium Level 3.7 mmol/L (3.5-5.1) Chloride Level 97 mmol/L (98-107) Carbon Dioxide Level 26 mmol/L (21-32) Anion Gap 10 (6-14) Blood Urea Nitrogen 10 mg/dL (7-20) Creatinine 0.8 mg/dL (0.6-1.0) Estimated GFR (Cockcroft-Gault) 81.2 BUN/Creatinine Ratio 13 (6-20) Glucose Level 144 mg/dL (70-99) Calcium Level 8.7 mg/dL (8.5-10.1) Magnesium Level 2.1 mg/dL (1.8-2.4) Total Bilirubin 0.3 mg/dL (0.2-1.0) Aspartate Amino Transf (AST/SGOT) 17 U/L (15-37) Alanine Aminotransferase (ALT/SGPT) 29 U/L (14-59) Alkaline Phosphatase 98 U/L (46-116) Creatine Kinase 108 U/L (26-192) Creatine Kinase MB (Mass) < 0.5 ng/mL (0.0-3.6) Creatine Kinase MB Relative Index % (0-4) Troponin I Quantitative < 0.017 ng/mL (0.000-0.055) MY-Fnt-N-Type Natriuretic Peptide 34 pg/mL (0-124) Total Protein 8.5 g/dL (6.4-8.2) Albumin 3.6 g/dL (3.4-5.0) Albumin/Globulin Ratio 0.7 (1.0-1.7) Lipase 123 U/L (73-393) Thyroid Stimulating Hormone (TSH) 0.847 uIU/mL (0.358-3.74) Urine Collection Type Unknown Urine Color [place] Urine Clarity Cloudy Urine pH 7.5 Urine Specific [place] >=1.030 Urine Protein Negative mg/dL (NEG-TRACE) Urine Glucose (UA) Negative mg/dL (NEG) Urine Ketones (Stick) Negative mg/dL (NEG) Urine Blood Large (NEG) Urine Nitrite Negative (NEG) Urine Bilirubin Negative (NEG) Urine Urobilinogen Dipstick 0.2 mg/dL (0.2 mg/dL) Urine Leukocyte Esterase Moderate (NEG) Urine RBC Tntc /HPF (0-2) Urine WBC 11-20 /HPF (0-4) Urine Squamous Epithelial Cells Few /LPF Urine Bacteria Few /HPF (0-FEW) Urine Mucus Slight /LPF Urine Test Negative (NEG) Urine Opiates Screen Neg (NEG) Urine Methadone Screen Neg (NEG) Urine Barbiturates Neg (NEG) Urine Phencyclidine Screen Neg (NEG) Urine Amphetamine/Methamphetamine Neg (NEG) Urine Benzodiazepines Screen Neg (NEG) Urine Cocaine Screen Neg (NEG) Urine Cannabinoids Screen Neg (NEG) Urine Ethyl Alcohol Neg (NEG) Glucose (Fingerstick) 124 mg/dL (70-99) Problem List Problems Medical Problems: (1) Cholecystitis Status: Acute (2) Epigastric pain Status: Acute (3) HTN (hypertension) Status: Acute Assessment/Plan s/p lap ana can dc home after lunch if tolerates script on chart FU 2 weeks MARYCRUZ HERRERA [employer] Dec 04, 2018 08:43
--- NOTE | 2018-12-04 10:09 | PDOC ---
PROGRESS NOTES Chief Complaint Chief Complaint CC: epigastric/RUQ abdominal pain History of Present Illness History of Present Illness Pt seen and examined this morning, Sitting upright in bed Notes some mild abdominal pain, tolerating FLD No new complaints Vitals Vitals Vital Signs Date Time Temp Pulse Resp B/P (MAP) Pulse Ox O2 Delivery O2 Flow Rate FiO2 12/04/18 08:00 Room Air 12/04/18 07:51 55 122/70 12/04/18 07:00 98.1 18 97 98.1 12/03/18 15:25 10 Physical Exam General: Alert, Oriented X3, Cooperative, No acute distress Heart: Regular rate, Normal S1, Normal S2, No murmurs Lungs: Clear, Other (No crackles or wheezing) Abdomen: Normal bowel sounds, Soft, Other (lap dressings C/D/I, mild abdominal tenderenss) Extremities: No clubbing, No cyanosis, No edema, Normal pulses, No tenderness/swelling Skin: No rashes, No breakdown, No significant lesion Review of Systems Review of Systems Denies F/C Denies N/V Denies CP or SOA Assessment and Plan Assessmemt and Plan Assessment: Epigastric/RUQ abdominal pain- Cholecystitis, S/p Lap Cholecystectomy HTN GERD HLD Plan: D/c home today, if okay with surgery Tolerating FLD, ADAT, planned d/c after lunch Rx written for pain medications and cipro F/u with surgeon in 1-2 weeks Recheck labs Full Code Problems Medical Problems: (1) Cholecystitis Status: Acute (2) Epigastric pain Status: Acute (3) HTN (hypertension) Status: Acute Comment Review of Relevant I have reviewed the following items trent (where applicable) has been applied. Labs Laboratory Tests Test 12/02/18 23:05 12/03/18 00:40 12/03/18 03:48 White Blood Count 10.7 x10^3/uL (4.0-11.0) Red Blood Count 4.54 x10^6/uL (3.50-5.40) Hemoglobin 13.4 g/dL (12.0-15.5) Hematocrit 38.8 % (36.0-47.0) Mean Corpuscular Volume 86 fL (79-100) Mean Corpuscular Hemoglobin 30 pg (25-35) Mean Corpuscular Hemoglobin Concent 35 g/dL (31-37) Red Cell Distribution Width 13.9 % (11.5-14.5) Platelet Count 362 x10^3/uL (140-400) Neutrophils (%) (Auto) 76 % (31-73) Lymphocytes (%) (Auto) 17 % (24-48) Monocytes (%) (Auto) 6 % (0-9) Eosinophils (%) (Auto) 1 % (0-3) Basophils (%) (Auto) 1 % (0-3) Neutrophils # (Auto) 8.1 x10^3uL (1.8-7.7) Lymphocytes # (Auto) 1.9 x10^3/uL (1.0-4.8) Monocytes # (Auto) 0.6 x10^3/uL (0.0-1.1) Eosinophils # (Auto) 0.1 x10^3/uL (0.0-0.7) Basophils # (Auto) 0.1 x10^3/uL (0.0-0.2) Prothrombin Time 13.2 SEC (11.7-14.0) Prothromb Time International Ratio 1.0 (0.8-1.1) D-Dimer (Halima) 1.06 ug/mlFEU (0.00-0.50) Sodium Level 133 mmol/L (136-145) Potassium Level 3.7 mmol/L (3.5-5.1) Chloride Level 97 mmol/L (98-107) Carbon Dioxide Level 26 mmol/L (21-32) Anion Gap 10 (6-14) Blood Urea Nitrogen 10 mg/dL (7-20) Creatinine 0.8 mg/dL (0.6-1.0) Estimated GFR (Cockcroft-Gault) 81.2 BUN/Creatinine Ratio 13 (6-20) Glucose Level 144 mg/dL (70-99) Calcium Level 8.7 mg/dL (8.5-10.1) Magnesium Level 2.1 mg/dL (1.8-2.4) Total Bilirubin 0.3 mg/dL (0.2-1.0) Aspartate Amino Transf (AST/SGOT) 17 U/L (15-37) Alanine Aminotransferase (ALT/SGPT) 29 U/L (14-59) Alkaline Phosphatase 98 U/L (46-116) Creatine Kinase 108 U/L (26-192) Creatine Kinase MB (Mass) < 0.5 ng/mL (0.0-3.6) Creatine Kinase MB Relative Index % (0-4) Troponin I Quantitative < 0.017 ng/mL (0.000-0.055) TK-Kcz-G-Type Natriuretic Peptide 34 pg/mL (0-124) Total Protein 8.5 g/dL (6.4-8.2) Albumin 3.6 g/dL (3.4-5.0) Albumin/Globulin Ratio 0.7 (1.0-1.7) Lipase 123 U/L (73-393) Thyroid Stimulating Hormone (TSH) 0.847 uIU/mL (0.358-3.74) Urine Collection Type Unknown Urine Color [place] Urine Clarity Cloudy Urine pH 7.5 Urine Specific [place] >=1.030 Urine Protein Negative mg/dL (NEG-TRACE) Urine Glucose (UA) Negative mg/dL (NEG) Urine Ketones (Stick) Negative mg/dL (NEG) Urine Blood Large (NEG) Urine Nitrite Negative (NEG) Urine Bilirubin Negative (NEG) Urine Urobilinogen Dipstick 0.2 mg/dL (0.2 mg/dL) Urine Leukocyte Esterase Moderate (NEG) Urine RBC Tntc /HPF (0-2) Urine WBC 11-20 /HPF (0-4) Urine Squamous Epithelial Cells Few /LPF Urine Bacteria Few /HPF (0-FEW) Urine Mucus Slight /LPF Urine Test Negative (NEG) Urine Opiates Screen Neg (NEG) Urine Methadone Screen Neg (NEG) Urine Barbiturates Neg (NEG) Urine Phencyclidine Screen Neg (NEG) Urine Amphetamine/Methamphetamine Neg (NEG) Urine Benzodiazepines Screen Neg (NEG) Urine Cocaine Screen Neg (NEG) Urine Cannabinoids Screen Neg (NEG) Urine Ethyl Alcohol Neg (NEG) Glucose (Fingerstick) 124 mg/dL (70-99) Medications Current Medications Aspirin (Selam Aspirin) 325 mg 1X ONCE PO Last administered on 12/02/18at 23:44; Start 12/02/18 at 23:15; Stop 12/02/18 at 23:17; Status DC Alprazolam (Xanax) 0.5 mg 1X ONCE PO Last administered on 12/02/18at 23:43; Start 12/02/18 at 23:15; Stop 12/02/18 at 23:17; Status DC Multi-Ingredient Mouthwash/Gargle (Gi Cocktail) 20 ml 1X ONCE SWSW Last administered on 12/02/18at 23:43; Start 12/02/18 at 23:15; Stop 12/02/18 at 23:17; Status DC Famotidine (Pepcid Vial) 20 mg 1X ONCE IVP Last administered on 12/02/18at 23:44; Start 12/02/18 at 23:15; Stop 12/02/18 at 23:17; Status DC Sodium Chloride 1,000 ml @ 1,000 mls/hr 1X ONCE IV Last administered on 12/02/18at 23:44; Start 12/02/18 at 23:15; Stop 12/03/18 at 00:14; Status DC Iohexol (Omnipaque 350 Mg/ml) 100 ml 1X ONCE IV Last administered on 12/03/18at 00:30; Start 12/03/18 at 00:00; Stop 12/03/18 at 00:01; Status DC Info (CONTRAST GIVEN -- Rx MONITORING) 1 each PRN DAILY PRN MC SEE COMMENTS; Start 12/03/18 at 00:00; Stop 12/05/18 at 00:00 Labetalol HCl (Normodyne Iv Push) 10 mg 1X ONCE IVP ; Start 12/03/18 at 00:15; Stop 12/03/18 at 00:16; Status DC Clonidine HCl (Catapres) 0.1 mg 1X ONCE PO Last administered on 12/03/18at 00:38; Start 12/03/18 at 00:15; Stop 12/03/18 at 00:16; Status DC Ondansetron HCl (Zofran) 4 mg PRN Q8HRS PRN IV NAUSEA/VOMITING Last administered on 12/03/18at 05:45; Start 12/03/18 at 01:30; Stop 12/03/18 at 08:45; Status DC Morphine Sulfate (Morphine Sulfate) 4 mg PRN Q2HR PRN IV PAIN Last administered on 12/03/18at 09:58; Start 12/03/18 at 01:30; Stop 12/04/18 at 01:29; Status DC Sodium Chloride 1,000 ml @ 100 mls/hr Q10H IV Last administered on 12/03/18at 21:02; Start 12/03/18 at 01:30; Stop 12/04/18 at 01:29; Status DC Piperacillin Sod/ Tazobactam Sod (Zosyn Per Pharmacy) 1 each PRN DAILY PRN MC SEE COMMENTS; Start 12/03/18 at 01:30 Piperacillin Sod/ Tazobactam Sod 3.375 gm/Sodium Chloride 50 ml @ 100 mls/hr Q6HRS IV Last administered on 12/04/18at 05:56; Start 12/03/18 at 01:30 Ondansetron HCl (Zofran) 4 mg PRN Q6HRS PRN IV NAUSEA/VOMITING Last administered on 12/03/18at 18:12; Start 12/03/18 at 08:45 Lisinopril (Prinivil) 10 mg DAILY PO Last administered on 12/04/18at 07:51; Start 12/03/18 at 09:00 Pantoprazole Sodium (Protonix) 40 mg DAILYAC PO Last administered on 12/04/18at 05:56; Start 12/03/18 at 09:00 Ondansetron HCl (Zofran) 4 mg PRN Q6HRS PRN IV NAUSEA/VOMITING; Start 12/03/18 at 09:00; Stop 12/04/18 at 08:59; Status DC Fentanyl Citrate (Fentanyl 2ml Vial) 25 mcg PRN Q5MIN PRN IV MILD PAIN; Start 12/03/18 at 09:00; Stop 12/04/18 at 08:59; Status DC Fentanyl Citrate (Fentanyl 2ml Vial) 50 mcg PRN Q5MIN PRN IV MODERATE TO SEVERE PAIN; Start 12/03/18 at 09:00; Stop 12/04/18 at 08:59; Status DC Morphine Sulfate (Morphine Sulfate) 1 mg PRN Q10MIN PRN IV SEVERE PAIN; Start 12/03/18 at 09:00; Stop 12/04/18 at 08:59; Status DC Ringer's Solution 1,000 ml @ 30 mls/hr Q24H IV Last administered on 12/03/18at 14:00; Start 12/03/18 at 08:49; Stop 12/03/18 at 20:48; Status DC Lidocaine HCl (Xylocaine-Mpf 1% 2ml Vial) 2 ml PRN 1X PRN ID PRIOR TO IV START; Start 12/03/18 at 09:00; Stop 12/04/18 at 08:59; Status DC Hydromorphone HCl (Dilaudid) 0.5 mg PRN Q10MIN PRN IV SEV PAIN, Second choice; Start 12/03/18 at 09:00; Stop 12/04/18 at 08:59; Status DC Prochlorperazine Edisylate (Compazine) 5 mg PACU PRN PRN IV NAUSEA, MRX1; S tart 12/03/18 at 09:00; Stop 12/04/18 at 08:59; Status DC Bupivacaine HCl/ Epinephrine Bitart (Sensorcain-Mpf Epi 0.5%-1:096167) 30 ml STK-MED ONCE .ROUTE Last administered on 12/03/18at 13:44; Start 12/03/18 at 09:17; Stop 12/03/18 at 10:17; Status DC Iohexol (Omnipaque 300 Mg/ml) 100 ml STK-MED ONCE .ROUTE Last administered on 12/03/18at 13:45; Start 12/03/18 at 09:17; Stop 12/03/18 at 10:18; Status DC Cellulose (Surgicel Hemostat 4x8) 1 each STK-MED ONCE .ROUTE ; Start 12/03/18 at 09:18; Stop 12/03/18 at 10:18; Status DC Rocuronium [place] (Zemuron) 50 mg STK-MED ONCE .ROUTE ; Start 12/03/18 at 11:49; Stop 12/03/18 at 11:50; Status DC Fentanyl Citrate (Fentanyl 2ml Vial) 100 mcg STK-MED ONCE .ROUTE ; Start 12/03/18 at 11:49; Stop 12/03/18 at 11:50; Status DC Neostigmine Methylsulfate (Neostigmine Methylsulfate) 5 mg STK-MED ONCE .ROUTE ; Start 12/03/18 at 11:49; Stop 12/03/18 at 11:50; Status DC Glycopyrrolate (Robinul) 1 mg STK-MED ONCE .ROUTE ; Start 12/03/18 at 11:50; Stop 12/03/18 at 11:51; Status DC Sevoflurane (Ultane) 60 ml STK-MED ONCE IH ; Start 12/03/18 at 11:51; Stop 12/03/18 at 11:52; Status DC Propofol 20 ml @ As Directed STK-MED ONCE IV ; Start 12/03/18 at 11:51; Stop 12/03/18 at 11:52; Status DC Dexamethasone Sodium Phosphate (Decadron) 20 mg STK-MED ONCE .ROUTE ; Start 12/03/18 at 11:51; Stop 12/03/18 at 11:52; Status DC Lidocaine HCl (Lidocaine Pf 2% Vial) 5 ml STK-MED ONCE .ROUTE ; Start 12/03/18 at 11:51; Stop 12/03/18 at 11:52; Status DC Ondansetron HCl (Zofran) 4 mg STK-MED ONCE .ROUTE ; Start 12/03/18 at 11:51; Stop 12/03/18 at 11:52; Status DC Phenylephrine HCl (PHENYLEPHRINE in 0.9% NACL PF) 1 mg STK-MED ONCE IV ; Start 12/03/18 at 13:53; Stop 12/03/18 at 13:54; Status DC Sevoflurane (Ultane) 90 ml STK-MED ONCE IH ; Start 12/03/18 at 13:53; Stop 12/03/18 at 13:54; Status DC Ephedrine Sulfate (ePHEDrine PF IN SALINE SYRINGE) 50 mg STK-MED ONCE IV ; Start 12/03/18 at 14:40; Stop 12/03/18 at 14:41; Status DC Fentanyl Citrate (Fentanyl 2ml Vial) 100 mcg STK-MED ONCE .ROUTE ; Start 12/03/18 at 14:46; Stop 12/03/18 at 14:47; Status DC Prochlorperazine Edisylate (Compazine) 10 mg STK-MED ONCE .ROUTE ; Start 12/03/18 at 14:46; Stop 12/03/18 at 14:47; Status DC Oxycodone/ Acetaminophen (Percocet 5/325) 1 tab PRN Q4HRS PRN PO MODERATE PAIN; Start 12/03/18 at 15:00 Oxycodone/ Acetaminophen (Percocet 5/325) 2 tab PRN Q4HRS PRN PO SEVERE PAIN Last administered on 12/04/18at 05:57; Start 12/03/18 at 15:00 Active Scripts Active Reported Metformin Hcl 850 Mg Tablet 850 Mg PO 1X Omeprazole 20 Mg Capsule.dr 1 Cap PO DAILY Lisinopril 10 Mg Tablet 1 Tab PO DAILY Vitals/I & O Vital Sign - Last 24 Hours 12/03/18 12/03/18 12/03/18 12/03/18 10:28 11:00 12:40 14:55 Temp 98.3 98.3 98.3 98.3 Pulse 74 84 Resp 17 15 B/P (MAP) 139/81 (100) 162/87 Pulse Ox 97 99 O2 Delivery Room Air Room Air Room Air Room Air 12/03/18 12/03/18 12/03/18 12/03/18 14:55 15:10 15:25 15:40 Temp 98.3 98.3 98.3 98.3 98.3 98.3 Pulse 74 69 73 76 Resp 15 16 16 20 B/P (MAP) 105/52 104/52 108/56 108/56 Pulse Ox 97 97 97 97 O2 Delivery Simple Mask Simple Mask Simple Mask Room Air O2 Flow Rate 10 10 10 12/03/18 12/03/18 12/03/18 12/03/18 15:45 16:00 16:15 16:30 Pulse 77 79 77 78 Resp 17 17 17 17 B/P (MAP) 120/68 (85) 141/79 (99) 135/81 (99) 141/80 (100) Pulse Ox 93 92 93 94 O2 Delivery Room Air Room Air Room Air Room Air 12/03/18 12/03/18 12/03/18 12/03/18 16:44 16:59 17:29 18:00 Pulse 74 78 91 94 Resp 17 17 17 17 B/P (MAP) 137/79 (98) 137/78 (97) 155/90 (111) 160/95 (116) Pulse Ox 94 95 97 96 O2 Delivery Room Air Room Air Room Air Room Air 12/03/18 12/03/18 12/03/18 12/03/18 18:12 19:00 20:00 23:00 Temp 98.2 98.1 98.2 98.1 Pulse 89 82 Resp 18 18 B/P (MAP) 130/79 (96) 118/74 (89) Pulse Ox 95 96 O2 Delivery Room Air Room Air Room Air Room Air 12/03/18 12/04/18 12/04/18/25/19 23:30 03:00 05:57 06:58 Temp 98.0 98.0 Pulse 73 Resp 18 18 18 20 B/P (MAP) 123/70 (87) Pulse Ox 95 O2 Delivery Room Air Room Air Room Air Room Air 12/04/18 12/04/18 12/04/18 07:00 07:51 08:00 Temp 98.1 98.1 Pulse 55 55 Resp 18 B/P (MAP) 122/70 (87) 122/70 Pulse Ox 97 O2 Delivery Room Air Room Air Intake and Output 12/03/18 12/03/18 12/04/18 15:00 23:00 07:00 Intake Total 1750 ml 50 ml Output Total 460 ml Balance 1290 ml 50 ml YAN REGALADO III DO Dec 04, 2018 10:09
[2018-12-04 11:00] VITALS: BP 121/80
--- NOTE | 2018-12-04 13:51 | DS ---
DATE OF DISCHARGE: 12/04/2018 ADMISSION DIAGNOSIS: Cholecystitis. DISCHARGE DIAGNOSES: 1. Postop day #1 laparoscopic cholecystectomy. 2. Urinary tract infection. HOSPITAL COURSE: The patient is a pleasant middle-aged female who presented with cholecystitis. She was admitted. We consulted General Surgery. She was taken for laparoscopic cholecystectomy. This morning, she looked great. I examined her. Her heart tones were normal. Her lungs were clear. She is tolerating some food. She had minimal pain. We plan to discharge if okay with consultants. DISPOSITION: Home. ACTIVITY: As tolerated. DIET: Low sodium. MEDICATIONS: Please see the MRAD. We basically resumed her home meds. The surgeon gave her a prescription for Percocet. I gave her a prescription for Augmentin. TOTAL TIME: 33 minutes. YAN REGALADO DO DR: ERYN/aditya JOB#: [id number] / [id number]
--- NOTE | 2018-12-04 13:53 | NUR ---
SW following for discharge planning. Discussed with RN, pt possibly discharging today after lunch if able to tolerate food. SW met with pt to give self pay resources in Arabic with RN translating. Pt had questions about the bill and is going to contact shelly when she receives her bill in the mail and try to set up a payment plan if possible. No further SW needs.
[2018-12-04 15:00] VITALS: BP 140/80
--- NOTE | 2018-12-04 17:21 | NUR ---
Client discharged at approximately 1716. Client was stable and transported to private vehicle via wheelchair by staff. D/c instructions were discussed with the patient, questions were answered, and medical resources booklet provided by [facility] was given to client. Client accompanied by family for d/c.
[2018-12-04] MEDS ORDERED: LACTOBACILLUS RHAMNOSUS GG 1 CAPSULE. PO SCH (21:00)
--- NOTE | 2018-12-05 17:07 | PATHOLOGY ---
[facility] Accession Number: [id number] . 01 Material submitted: . gallbladder - GALLBLADDER . 01 Clinical history: . Cholecystitis . 02 Diagnosis: Gallbladder, laparoscopic cholecystectomy: - Cholelithiasis. - Chronic and focal acute cholecystitis with increased eosinophils. . (JP:mm; 12/05/2018) [facility]/12/05/2018 . 02 Comment: There is no evidence of malignancy. . ([facility]:mm; 12/05/2018) . 02 Electronically signed: . Mayo Duke MD, Pathologist NPI- [id number] . 01 Gross description: . The specimen is received in formalin labeled "Motacadeza, Yamilex, gallbladder" and consists of a previously opened, reardon, smooth, and hemorrhagic gallbladder measuring 11.4 in length and up to 3.4 in diameter. The margin is inked black. The mucosa is brown-reardon, eroded, and roughened with an edematous to fibrous wall averaging 0.3 cm. Present within the container are multiple fragmented reardon-brown calculi measuring 4.5 x 3.8 x 1.1 cm in aggregate. No masses are identified. Entry Level Buyer sections are submitted in A1-A2. (SDY; 12/04/2018) SYU/SYU . 02 Pathologist provided ICD-10: K80.12 . 02 CPT . 499835 Specimen Comment: A courtesy copy of this report has been sent to Specimen Comment: [phone], , . Specimen Comment: Report sent to ,DR WHEELER / DR STEPHENS Performed at: [address], [place], [place] [id number] MD Pool Sarmiento MD Phone: [phone] Performed at: [address] [id number] MD Mayo Duke MD Phone: [phone]
== END 2018-12-04 17:16 | disposition home or self-care (01) | DRG 418 ==
LOC: ER 22:38 → 4 NORTH 12-03 01:25 → MERGE 12-03 01:25
PROVIDERS: ADMIT Internal Medicine; ATTEND Internal Medicine
PROC: BF131ZZ Fluoroscopy of Gallbladder and Bile Ducts using Low Osmolar Contrast (ICD-10-PCS; 2018-12-03)
PROC: 0FT44ZZ Resection of Gallbladder, Percutaneous Endoscopic Approach (ICD-10-PCS; principal; 2018-12-03 13:00)
DX: K80.00 Calculus of gallbladder with acute cholecystitis without obstruction (principal); N39.0 Urinary tract infection, site not specified; F41.9 Anxiety disorder, unspecified; I10 Essential (primary) hypertension; K21.9 Gastro-esophageal reflux disease without esophagitis; E11.9 Type 2 diabetes mellitus without complications; E78.5 Hyperlipidemia, unspecified; E66.9 Obesity, unspecified; Z68.30 Body mass index [BMI] 30.0-30.9, adult; Z79.899 Other long term (current) drug therapy; Z98.891 History of uterine scar from previous surgery
CPT/HCPCS: 36415; 71045; 71275; 74300; 76705; 80053; 80307; 81001; 81025; 82553; 82962; 83690; 83735; 83880; 84443; 84484; 85025; 85379; 85610; 87086; 88304; 93005; 96361; 96374; A7015; J0171; J1100; J2001; J2270; J2370; J2405; J2543; J2704; J2710; J3010; J3490; J7030; J7120; Q9967; 99285-25